=== PATIENT | male | born 1930 | race Caucasian/White ===

== ENCOUNTER 2018-04-17 09:43 | Day surgery (SDC) | payer MEDICARE, OTHER ==
[2018-04-15 15:43] LABS: Basophils # (auto) 0 uL; Basophils % (auto) 0.9 % (0.0-2.0); Eosinophils # (auto) 0.2 uL; Eosinophils % (auto) 3.1 % (0.0-7.0); Hemoglobin 13.9 g/dL (13.5-17.5); Lymphocytes # (auto) 1.2 uL; Lymphocytes % (auto) 22.7 % (10.0-50.0); Monocytes # (auto) 0.5 uL; Neutrophils # (auto) 3.5 uL; Neutrophils % (auto) 64.3 % (37.0-80.0); Platelet Count (auto) 136 10^3/uL (140-450); Red Blood Cells 4.23 10^6/uL (4.5-5.90); Red Cell Distribution Width 15.4 % (11.8-14.3); White Blood Cell 5.5 10^3/uL (4.4-10.8)
[2018-04-15 15:47] LABS: Urine Bacteria NONE SEEN /hpf (None Seen); Urine Blood Negative /uL (Negative); Urine Specific Gravity 1.022 (1.001-1.035); Urine WBC 1 /hpf (0 - 3)
[2018-04-15 15:53] LABS: INR 0.97 (0.9-1.15); Partial Thromboplastin Time 25.3 sec (23.78-33.04); Prothrombin Time 10.4 sec (9.27-12.13)
[2018-04-15 16:06] LABS: Albumin 3.8 g/dL (3.4-5.0); BUN/Creatinine Ratio 17.9; Bilirubin, Total 0.9 mg/dL (0.2-1.0); Calcium 8.9 mg/dL (8.5-10.1); Potassium 4.4 mmol/L (3.5-5.1); Total Protein 7.3 g/dL (6.4-8.2)
[~2018-04-17] VITALS: Ht 175.3 cm; Wt 81.6 kg
[~2018-04-17 09:43] MED LIST: ATO40T PO; MELO1TAB56 PO; NIFE30TA76 PO; TAMS0.4C36 PO; TERA2CAP45 PO
[2018-04-17] MEDS ORDERED: BUPIVACAINE 0.75% INJ 10ML MPV SDV IJ ONE (13:12)
[2018-04-17] MEDS ORDERED: DEXAMETHASONE SOD PHOS 10MG/1ML VIAL INJ ONE (13:21)
[2018-04-17] MEDS ORDERED: MIDAZOLAM HCL 1MG/1ML-2 ML VIAL ONE (13:21)
[2018-04-17] MEDS ORDERED: fentaNYL CITRATE 100 MCG/2 ML VL ONE (13:21)
[2018-04-17] MEDS ORDERED: ePHEDrine SULFATE 50 MG/ML AMP IV PRN (13:30)
[2018-04-17] MEDS ORDERED: KETOROLAC TROMETH 30 MG/ML 1ML VIAL IV ONE (13:30)
[2018-04-17] MEDS ORDERED: MORPHINE SULFATE 4 MG/ML SYR/VIAL IV PRN (13:30)
[2018-04-17] MEDS ORDERED: HYDROmorphone HCL 2 MG/ML VL IV PRN (13:30)
[2018-04-17] MEDS ORDERED: MIDAZOLAM HCL 1MG/1ML-2 ML VIAL IV PRN (13:30)
[2018-04-17] MEDS ORDERED: ONDANSETRON HCL 4 MG/2 ML VIAL IV ONE (13:30)
[2018-04-17] MEDS ORDERED: ceFAZolin 1GM/50ML 50 ML IV ONE (13:34)
[2018-04-17] MEDS ORDERED: PROPOFOL 10 MG/ML 20 ML IV ONE (13:51)
[2018-04-17] MEDS ORDERED: MORPHINE SULFATE 4 MG/ML SYR/VIAL IV ONE (14:00)
[2018-04-17] MEDS ORDERED: LABETALOL HCL 5 MG/ML ML 20ML VIAL IV ONE (15:04)
[2018-04-17] MEDS: LABETALOL HCL 5 MG/ML 4ML SYRINGE IV PRN ×3 (15:07→15:29)
[2018-04-17 16:46] VITALS: BP 156/92
== END 2018-04-17 16:46 | disposition home or self-care (01) ==
LOC: SUR 09:43
PROVIDERS: ATTEND Podiatrist Foot & Ankle Surgery
DX: M21.621 Bunionette of right foot (principal); M1A.0711 Idiopathic chronic gout, right ankle and foot, with tophus (tophi); E66.9 Obesity, unspecified; I10 Essential (primary) hypertension; E78.00 Pure hypercholesterolemia, unspecified; I49.9 Cardiac arrhythmia, unspecified; E78.5 Hyperlipidemia, unspecified; I25.10 Atherosclerotic heart disease of native coronary artery without angina pectoris; I48.91 Unspecified atrial fibrillation; Z98.890 Other specified postprocedural states; Z79.899 Other long term (current) drug therapy
CPT/HCPCS: 28110; 36415; 80053; 81001; 85025; 85610; 85730; J0690; J1100; J2250; J2704; J3010; J3490; J7030; L3260

== ENCOUNTER → 2021-11-30 | Day surgery (SDC) | payer MEDICARE, OTHER ==
[2021-11-29 10:55] LABS: Basophils # (auto) 0.1 10 ^3/uL (0-0.2); Eosinophils # (auto) 0.1 10 ^3/uL (0-0.8); Hematocrit 37.8 % (41.0-53.0); Lymphocytes # (auto) 0.7 10 ^3/uL (0.4-5.4); Mean Corpuscular Hemoglobin 34.7 pg (28.0-32.0); Mean Corpuscular Hgb Conc. 34.5 g/dL (32.0-36.0); Monocytes # (auto) 0.4 10 ^3/uL (0-1.3)
[2021-11-29 10:57] LABS: Basophils % (auto) 1.4 % (0.0-2.0); Eosinophils % (auto) 2.2 % (0.0-7.0); Lymphocytes % (auto) 16.3 % (10.0-50.0); Mean Corpuscular Volume 100.5 fL (80.0-100.0); Monocytes % (auto) 9.8 % (0.0-12.0); Neutrophils % (auto) 70.3 % (37.0-80.0); Nucleated Red Blood Cells % 0.1 %; Red Blood Cells 3.76 10^6/uL (4.5-5.90); White Blood Cell 4.2 10^3/uL (4.4-10.8)
[2021-11-29 11:24] LABS: INR 1.07 (0.9-1.15); Partial Thromboplastin Time 27.3 sec (23.6-33.0)
[2021-11-29 11:53] LABS: Albumin 3.6 g/dL (3.4-5.0); BUN/Creatinine Ratio 23.3; Bilirubin, Total 1.3 mg/dL (0.2-1.0); Calcium 9.2 mg/dL (8.5-10.1); Total Protein 7.3 g/dL (6.4-8.2)
[~2021-11-30] VITALS: Ht 185.4 cm; Wt 63.5 kg
[~2021-11-30] MED LIST changes: +APIX2.5T PO; +CELE1CAP6 PO; +DexAMETHasone SOD PHOS 10MG/1ML VIAL INJ ONE; +GLUC1TAB22 PO; +LABETALOL HCL 5 MG/ML 4ML SYRINGE IV PRN; +LIDOCAINE W/ EPINEPHRINE 2% INJ 20ML VIAL ONE; -MELO1TAB56 PO; +MEPERIDINE HCL (25 MG/ML) 1ML VIAL ONE; +MIDAZOLAM HCL 2MG/2ML 2ml VIAL (1mg/ml) IV PRN; +MIDAZOLAM HCL 2MG/2ML 2ml VIAL (1mg/ml) ONE; +MORPHINE SULFATE 4 MG/ML SYR/VIAL IV PRN; +MULT-1018 OR; -NIFE30TA76 PO; +ONDANSETRON HCL 4 MG/2 ML VIAL IV PRN; +PROPOFOL 10 MG/ML 20 ML IV ONE; +ROPIVACAINE 0.5% (5MG/ML) 20ML AMPULE IJ ONE; +ceFAZolin 1GM VL ONE; +ceFAZolin 1GM/50ML 100 ML IV ONE; +ePHEDrine SULFATE 50 MG/ML AMP IV PRN; +fentaNYL CITRATE 100 MCG/2 ML VL ONE
[2021-11-30 11:00] VITALS: BP 147/64
== END | disposition home or self-care (01) ==
LOC: SUR 07:12
PROVIDERS: ATTEND Podiatrist Foot & Ankle Surgery
DX: B07.0 Plantar wart (principal); G57.61 Lesion of plantar nerve, right lower limb; L82.1 Other seborrheic keratosis; I10 Essential (primary) hypertension; E11.9 Type 2 diabetes mellitus without complications; E78.5 Hyperlipidemia, unspecified; I48.91 Unspecified atrial fibrillation; I25.10 Atherosclerotic heart disease of native coronary artery without angina pectoris; Z85.46 Personal history of malignant neoplasm of prostate; Z98.890 Other specified postprocedural states; Z79.899 Other long term (current) drug therapy; Z20.822 Contact with and (suspected) exposure to COVID-19; Z95.0 Presence of cardiac pacemaker
CPT/HCPCS: 11421; 36415; 80053; 85025; 85610; 85730; 88305; J0690; J1100; J2175; J2250; J2704; J3010; U0003